=== PATIENT | female | born 1995 | race Caucasian/White ===

== ENCOUNTER → 2016-11-10 | Outpatient (REF) | payer BC | LOC: M LAB REF 09:14 | PROVIDERS: ATTEND Physician Assistant | DX: R30.0 Dysuria (principal) ==

== ENCOUNTER → 2017-05-18 | Outpatient (REF) | payer BC | LOC: M LAB REF 16:37 | DX: R30.0 Dysuria (principal) | CPT/HCPCS: 87086 ==